=== PATIENT | female | born 1930 | race Caucasian/White ===

== ENCOUNTER 2017-04-13 13:48 | Outpatient (CLI) ==
[2015-12-21 17:51] VITALS: BMI 18.6
== END 2017-04-13 13:49 | disposition home or self-care (01) ==
LOC: AMBL 13:48
PROVIDERS: ATTEND Internal Medicine Geriatric Medicine
DX: R53.1 Weakness (principal); R42 Dizziness and giddiness; R55 Syncope and collapse; R41.0 Disorientation, unspecified; I48.91 Unspecified atrial fibrillation; R00.1 Bradycardia, unspecified; R63.0 Anorexia; R40.2411 Glasgow coma scale score 13-15, in the field [EMT or ambulance]; Z91.14 Patient's other noncompliance with medication regimen

== ENCOUNTER 2017-10-01 09:03 | Outpatient (CLI) ==
[2015-12-21 17:51] VITALS: BMI 18.6
== END 2017-10-01 09:04 | disposition home or self-care (01) ==
LOC: AMBL 09:03
PROVIDERS: ATTEND Emergency Medicine
DX: R55 Syncope and collapse (principal); R42 Dizziness and giddiness; I10 Essential (primary) hypertension; F03.90 Unspecified dementia, unspecified severity, without behavioral disturbance, psychotic disturbance, mood disturbance, and anxiety